=== PATIENT | male | born 1950 | race Caucasian/White ===

== ENCOUNTER 2017-03-19 13:46 | Outpatient (CLI) | payer OTHER | END 2017-03-19 13:51 | disposition home or self-care (01) | LOC: RAD 501 13:46 | DX: J40 Bronchitis, not specified as acute or chronic (principal); I10 Essential (primary) hypertension; E78.89 Other lipoprotein metabolism disorders ==

== ENCOUNTER 2018-10-02 08:45 | Outpatient (CLI) | payer OTHER ==
[~2018-10-02] VITALS: Ht 172.7 cm; Wt 74.8 kg
== END 2018-10-02 09:00 | disposition home or self-care (01) ==
LOC: OFIC 805 08:45
DX: H61.23 Impacted cerumen, bilateral (principal); J31.0 Chronic rhinitis; H90.3 Sensorineural hearing loss, bilateral

== ENCOUNTER 2018-10-03 08:46 | Outpatient (CLI) | payer OTHER | END 2018-10-03 11:24 | disposition home or self-care (01) | LOC: TOM 08:46 | DX: C91.10 Chronic lymphocytic leukemia of B-cell type not having achieved remission (principal) | CPT/HCPCS: 71260; 74177; Q9965 ==

== ENCOUNTER 2019-10-07 07:24 | Outpatient (CLI) | payer OTHER | END 2019-10-07 07:32 | disposition home or self-care (01) | LOC: SONOGRAMA 07:24 | PROVIDERS: ATTEND Urology | DX: N40.1 Benign prostatic hyperplasia with lower urinary tract symptoms (principal); R31.0 Gross hematuria ==

== ENCOUNTER 2020-10-04 08:02 | Outpatient (CLI) | payer OTHER | END 2020-10-04 08:05 | disposition home or self-care (01) | LOC: LAB 08:02 | PROVIDERS: ATTEND Physical Medicine & Rehabilitation | DX: Z11.52 Encounter for screening for COVID-19 (principal) ==

== ENCOUNTER 2020-10-14 08:00 | Outpatient (CLI) | payer OTHER | END 2020-10-14 08:30 | disposition home or self-care (01) | LOC: PPH VACUNA 08:00 | DX: Z23 Encounter for immunization (principal) ==

== ENCOUNTER 2021-06-14 08:00 | Outpatient (CLI) | payer OTHER | END 2021-06-14 08:30 | disposition home or self-care (01) | LOC: PPH VACUNA 08:00 | PROVIDERS: ATTEND Emergency Medicine Pediatric Emergency Medicine | DX: Z23 Encounter for immunization (principal) ==

== ENCOUNTER 2021-08-26 07:20 | Outpatient (CLI) | payer OTHER | END 2021-08-26 08:13 | disposition home or self-care (01) | LOC: SONOGRAMA 07:20 | PROVIDERS: ATTEND Urology | DX: N42.32 Atypical small acinar proliferation of prostate (principal); C61 Malignant neoplasm of prostate; R97.20 Elevated prostate specific antigen [PSA]; N41.1 Chronic prostatitis ==

== ENCOUNTER 2021-12-19 13:19 | Outpatient (CLI) | payer OTHER | END 2021-12-19 13:29 | disposition home or self-care (01) | LOC: PPH VACUNA 13:19 | PROVIDERS: ATTEND Emergency Medicine Pediatric Emergency Medicine | DX: Z23 Encounter for immunization (principal) ==

== ENCOUNTER 2022-12-01 02:47 | Emergency (ER) | payer OTHER ==
[~2022-12-01] VITALS: Ht 175.3 cm; Wt 73.5 kg
[2022-12-01] MEDS ORDERED: SIMVASTATIN5 MG (03:02)
[2022-12-01] MEDS ORDERED: LEVOTHYROXINE13 MCG (03:02)
[2022-12-01] MEDS ORDERED: ACID REDUCER20 M1 (03:03)
[2022-12-01] MEDS ORDERED: IMBRUVICA140 MG (03:03)
[2022-12-01] MEDS ORDERED: IRBESARTAN-HCT1 EACH PO (03:03)
[2022-12-01] MEDS ORDERED: GAZYVA1000 MG/40 IV (03:04)
[2022-12-01 04:11] LABS: HEMATOCRIT 41.8 % (39.0-48.0); HEMOGLOBIN 14.1 g/dL (13-16.00); MEAN CELL VOLUME 88.9 fL (80.0-100.00); MEAN CORPUSCULAR HEMOGLOBIN 30.1 pg (27.00-32.0); MEAN CORPUSCULAR HGB CONC 33.8 g/dl (32.0-36.0); PLATELET COUNT 170 K/uL (150-450); RED CELL DISTRIBUTION WIDTH 13.2 % (11.5-14.5)
[2022-12-01 04:35] LABS: CALCIUM 8.4 mg/dL (8.5-10.1); CREATININE SERUM 1.46 mg/dL (0.70-1.30); GFR 47.2; POTASSIUM 3.99 mEq/L (3.5-5.1)
[2022-12-01 07:05] LABS: PH,URINE 5.5 (5.0-8.0); URINE APPEARANCE Clear; URINE BILIRRUBIN Negative (NEGATIVE); URINE BLOOD Small; URINE COLOR Yellow; URINE GLUCOSE Negative (NEGATIVE); URINE LEUKOCYTE Negative; URINE NITRATE Negative; URINE PROTEIN Negative (NEGATIVE); URINE UROBILINOGEN 0.2 E.U./dl
[2022-12-01 07:13] LABS: URINE BACTERIA 16.3 uL (0.0-1933); URINE RBC 25.2 uL (0.0-20.8); URINE WBC 1.8 uL (0.0-23.2)
[2022-12-01 07:56] LABS: URINE EPITHELIAL CELLS 0.4 uL (0.0-38.8)
== END 2022-12-01 09:25 | disposition home or self-care (01) ==
LOC: ER 02:47
PROVIDERS: General Practice
DX: R10.31 Right lower quadrant pain (principal); I10 Essential (primary) hypertension; E03.8 Other specified hypothyroidism; Z88.0 Allergy status to penicillin
CPT/HCPCS: 36415; 74176; 96365; 96372; 99284; J1885; J2550

== ENCOUNTER 2022-12-07 08:43 | Outpatient (CLI) | payer OTHER ==
[~2022-12-07 08:43] MED LIST: ACID REDUCER20 M1; GAZYVA1000 MG/40 IV; IMBRUVICA140 MG; IRBESARTAN-HCT1 EACH PO; LEVOTHYROXINE13 MCG; SIMVASTATIN5 MG
== END 2022-12-07 08:46 | disposition home or self-care (01) ==
LOC: TOM 08:43
PROVIDERS: ATTEND Internal Medicine
DX: Z01.00 Encounter for examination of eyes and vision without abnormal findings (principal); R59.0 Localized enlarged lymph nodes; F41.3 Other mixed anxiety disorders; C91.90 Lymphoid leukemia, unspecified not having achieved remission; C91.10 Chronic lymphocytic leukemia of B-cell type not having achieved remission; K22.70 Barrett's esophagus without dysplasia; K20.90 Esophagitis, unspecified without bleeding; B00.0 Eczema herpeticum; L13.0 Dermatitis herpetiformis; H60.399 Other infective otitis externa, unspecified ear; B02.23 Postherpetic polyneuropathy; D49.2 Neoplasm of unspecified behavior of bone, soft tissue, and skin; Z88.0 Allergy status to penicillin

== ENCOUNTER 2022-12-09 17:29 | Emergency (ER) | payer OTHER ==
[~2022-12-09] VITALS: Ht 175.3 cm; Wt 76.2 kg
[2022-12-09 19:06] LABS: HEMATOCRIT 43.3 % (39.0-48.0); HEMOGLOBIN 14.1 g/dL (13-16.00); MEAN CELL VOLUME 90.5 fL (80.0-100.00); MEAN CORPUSCULAR HEMOGLOBIN 29.4 pg (27.00-32.0); MEAN CORPUSCULAR HGB CONC 32.4 g/dl (32.0-36.0); PLATELET COUNT 173 K/uL (150-450); RED BLOOD COUNT 4.79 M/uL (4.00-6.00); RED CELL DISTRIBUTION WIDTH 13.2 % (11.5-14.5)
[2022-12-09 19:08] LABS: URINE APPEARANCE Clear; URINE BILIRRUBIN Negative (NEGATIVE); URINE BLOOD Trace; URINE COLOR Yellow; URINE GLUCOSE Negative (NEGATIVE); URINE LEUKOCYTE Negative; URINE NITRATE Negative; URINE PROTEIN Negative (NEGATIVE); URINE UROBILINOGEN 0.2 E.U./dl
[2022-12-09 19:12] LABS: URINE RBC 32.1 uL (0.0-20.8)
[2022-12-09 19:35] LABS: URINE BACTERIA 2.5 uL (0.0-1933); URINE EPITHELIAL CELLS 0.9 uL (0.0-38.8); URINE WBC 1.7 uL (0.0-23.2)
[2022-12-09 19:44] LABS: CALCIUM 8.8 mg/dL (8.5-10.1); CREATININE SERUM 1.41 mg/dL (0.70-1.30); GFR 49.13; POTASSIUM 4.07 mEq/L (3.5-5.1)
== END 2022-12-09 21:27 | disposition home or self-care (01) ==
LOC: ER 17:29
PROVIDERS: General Practice
DX: M54.50 Low back pain, unspecified (principal); Z88.0 Allergy status to penicillin
CPT/HCPCS: 36415; 96372; 99284; J2920

== ENCOUNTER 2022-12-12 05:49 | Emergency (ER) | payer OTHER ==
[~2022-12-12] VITALS: Ht 175.3 cm; Wt 76.2 kg
== END 2022-12-12 07:09 | disposition home or self-care (01) ==
LOC: ER 05:49
DX: M46.1 Sacroiliitis, not elsewhere classified (principal); Z88.0 Allergy status to penicillin
CPT/HCPCS: 96372; 99284; J1885